=== PATIENT | male | born 1955 | race Caucasian/White ===

== ENCOUNTER 2023-09-12 19:49 | Inpatient (IN) | payer MEDICARE, OTHER ==
[~2023-09-12] VITALS: Ht 175.3 cm; Wt 75.0 kg
[~2023-09-12 19:49] MED LIST: ALBUAER3 IN; LEVO500T91 PO
[2023-09-12] MEDS: cefTRIAXone SOD 1,000 MG VL IM ONE (21:30)
[2023-09-13 01:00] VITALS: PULSE 91; RESP 16; O2SAT 98
[2023-09-13] MEDS ORDERED: ONDANSETRON HCL 4 MG/2 ML VIAL IV PRN (01:15)
[2023-09-13] MEDS ORDERED: ACETAMINOPHEN 325 MG TAB PO PRN (01:15)
[2023-09-13] MEDS ORDERED: TEMAZEPAM 15 MG CAP PO PRN (01:15)
[2023-09-13] MEDS ORDERED: ALBUTEROL SULF 2.5 MG/0.5ML(0.5%) NEB SOLN NEB PRN (01:15)
[2023-09-13] MEDS: methylPREDNISolone SOD SUCC 125 MG/2 ML VL IM ONE (01:21)
[2023-09-13] MEDS: AZITHROMYCIN 500MG/ 250ML 250 ML IV ONE (01:21)
[2023-09-13 04:23] VITALS: O2SAT 96
[2023-09-13 07:54] VITALS: BP 129/84; PULSE 84; RESP 16; TEMP 98.7; O2SAT 97
[2023-09-13] MEDS ORDERED: cefTRIAXone 1GM/50ML D5W 50 ML IV SCH (21:00)
[2023-09-13] MEDS ORDERED: AZITHROMYCIN 500MG/ 250ML 250 ML IV SCH (22:00)
== END 2023-09-13 08:14 | disposition left against medical advice (07) | DRG 194 ==
LOC: ER 19:49 → EDBD 19:49 → OVERFLOW 09-13 01:16
PROVIDERS: ADMIT Nurse Practitioner; ATTEND Family Medicine
DX: J18.9 Pneumonia, unspecified organism (principal); Z59.00 Homelessness unspecified; H54.40 Blindness, one eye, unspecified eye; F17.210 Nicotine dependence, cigarettes, uncomplicated; R91.8 Other nonspecific abnormal finding of lung field; Z91.81 History of falling
CPT/HCPCS: 36415; 71045; 72100; 80053; 83880; 84484; 85025; 93005; 94640; 96365; 96372; G0378